=== PATIENT | male | born 1990 | race African-American/Black ===

== ENCOUNTER 2018-01-29 05:52 | Emergency (ER) | payer OTHER ==
[2018-01-29] MEDS ORDERED: IBUPROFEN 600 MG TABLET PO ONE (06:44)
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
[2018-01-29 09:10] VITALS: BP 122/79
== END 2018-01-29 09:26 | disposition home or self-care (01) ==
LOC: ER 05:52
DX: S06.0X9A Concussion with loss of consciousness of unspecified duration, initial encounter (principal); S63.91XA Sprain of unspecified part of right wrist and hand, initial encounter; S43.401A Unspecified sprain of right shoulder joint, initial encounter; S02.31XA Fracture of orbital floor, right side, initial encounter for closed fracture; H57.11 Ocular pain, right eye; V89.2XXA Person injured in unspecified motor-vehicle accident, traffic, initial encounter
CPT/HCPCS: 70450; 70486; 72125; 99284

== ENCOUNTER 2018-07-02 12:21 | Emergency (ER) | payer SELFPAY ==
[2018-07-02 12:29] VITALS: BP 123/78
--- NOTE | 2018-07-02 14:09 | ER Document Report ---
HPI - HPI Patient complains to provider of: Headache Time Seen by Provider: 07/02/18 13:57 Onset: Yesterday Quality of pain: No pain Pain Level: Denies Context: Patient presents emergency department with complaints of a headache he had yesterday. He reports he gets headaches that come and go. He had to leave work yesterday and they told him he needs a doctor's note to come back. Patient d enies headache at this time. Denies other symptoms such as fever vomiting diarrhea denies head trauma. Patient reports he usually gets headache at the back of his head. He thinks it may be from where he works with a lot of steam. Patient reports the headache usually goes away after he takes an ibuprofen. Past Medical History - General Information source: Patient - Social History Smoking Status: Unknown if Ever Smoked Occupation: [employer] Family History: None Patient has suicidal ideation: No Patient has homicidal ideation: No - Medical History Medical History: Negative Renal/ Medical History: Denies: Hx Peritoneal Dialysis Surgical Hx: Negative Vertical Provider Document - CONSTITUTIONAL Agree With Documented VS: Yes Exam Limitations: No Limitations General Appearance: WD/WN, No Apparent Distress - INFECTION CONTROL TRAVEL OUTSIDE OF THE [place] IN LAST 30 DAYS: No - HEENT HEENT: Atraumatic, Normal ENT Exam, Normocephalic, PERRLA. negative: Conjuctival Injection, Pharyngeal Erythema, Tympanic Membrane Red - NECK Neck: Normal Inspection, Supple. negative: Lymphadenopathy-Left, Lymphadenopathy-Right - RESPIRATORY Respiratory: Breath Sounds Normal, No Respiratory Distress - CARDIOVASCULAR Cardiovascular: Regular Rate, Regular Rhythm - GI/ABDOMEN Gastrointestinal: Abdomen Soft, Abdomen Non-Tender - MUSCULOSKELETAL/EXTREMETIES Musculoskeletal/Extremeties: ROSALIA AYALA - NEURO Level of Consciousness: Awake, Alert, Appropriate Motor/Sensory: No Motor Deficit - DERM Integumentary: Warm, Dry, No Rash Course - Re-evaluation Re-evalutation: 07/02/18 14:08 Patient denies symptoms at this time will be discharged home with a work note. - Vital Signs Vital signs: Temp Pulse Resp BP Pulse Ox 98.0 F 52 L 14 123/78 99 07/02/18 12:28 07/02/18 12:28 07/02/18 12:28 07/02/18 12:28 07/02/18 12:28 Discharge - Discharge Clinical Impression: Headache Qualifiers: Headache type: unspecified Headache chronicity pattern: unspecified pattern Intractability: not intractable Qualified Code(s): R51 - Headache Condition: Stable Disposition: HOME, SELF-CARE Instructions: Headache ([facility]), Acetaminophen Additional Instructions: *You have been evaluated for history of headache *Take Tylenol as indicated *Follow up with a primary care provider within 5 days for recheck *Return to ED for worsening condition, changes, needs *Return to ED if not better in 24 hours Forms: Return to Work
== END 2018-07-02 14:12 | disposition home or self-care (01) ==
LOC: ER 12:21
DX: R51 Headache (principal)
CPT/HCPCS: 99281

== ENCOUNTER 2018-09-08 11:20 | Emergency (ER) | payer SELFPAY ==
--- NOTE | 2018-09-08 12:32 | ER Document Report ---
HPI - HPI Patient complains to provider of: sore throat Time Seen by Provider: 09/08/18 12:26 Onset: Other - 3 days Onset/Duration: Persistent Quality of pain: Achy Pain Level: 3 Context: Patient presents complaining of cough and sore throat that started over the past 3 days. Patient denies any fever nausea or vomiting. Associated Symptoms: Nonproductive cough, Sore throat. denies: Fever, Rhinnorhea Exacerbated by: Denies Relieved by: Denies Similar symptoms previously: No Recently seen / treated by doctor: No - ROS ROS below otherwise negative: Yes Systems Reviewed and Negative: Yes All other systems reviewed and negative - CONSTITUTIONAL Constitutional: DENIES: Fever, Chills - EENT EENT: REPORTS: Sore Throat, Congestion - CARDIOVASCULAR Cardiovascular: DENIES: Chest pain - RESPIRATORY Respiratory: REPORTS: Coughing. DENIES: Trouble Breathing - GASTROINTESTINAL Gastrointestinal: DENIES: Abdominal Pain, Patient vomiting, Diarrhea - MUSCULOSKELETAL Musculoskeletal: DENIES: Back Pain - DERM Skin Color: Normal Skin Problems: None Past Medical History - General Information source: Patient - Social History Smoking Status: Current Every Day Smoker Smoking Education Provided: Yes Frequency of alcohol use: None Drug Abuse: None Occupation: [employer] Family History: None Patient has suicidal ideation: No Patient has homicidal ideation: No - Medical History Medical History: Negative Renal/ Medical History: Denies: Hx Peritoneal Dialysis Surgical Hx: Negative Vertical Provider Document - CONSTITUTIONAL Agree With Documented VS: Yes Exam Limitations: No Limitations General Appearance: WD/WN, No Apparent Distress - INFECTION CONTROL TRAVEL OUTSIDE OF THE [place] IN LAST 30 DAYS: No - HEENT HEENT: Atraumatic, Normocephalic, Pharyngeal Tenderness, Pharyngeal Erythema. negative: Pharyngeal Exudate, Tympanic Membrane Red, Tympanic Membrane Bulging - NECK Neck: Normal Inspection, Supple. negative: Lymphadenopathy-Left, Lymphadenopathy-Right - RESPIRATORY Respiratory: Breath Sounds Normal, No Respiratory Distress - CARDIOVASCULAR Cardiovascular: Regular Rate, Regular Rhythm, No Murmur - BACK Back: Normal Inspection - MUSCULOSKELETAL/EXTREMETIES Musculoskeletal/Extremeties: MAEW, FROM - NEURO Level of Consciousness: Awake, Alert, Appropriate Motor/Sensory: No Motor Deficit - DERM Integumentary: Warm, Dry, No Rash Course - Re-evaluation Re-evalutation: 09/08/18 13:00 Rapid strep test negative, throat culture is pending at this time. 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 Respirations even unlabored, no concern for pneumonia. Good return p recautions discussed with patient. Patient with only mild wheezing only noted with coughing, no wheezing noted with respirations. 09/08/18 13:02 - Vital Signs Vital signs: Temp Pulse Resp BP Pulse Ox 98.0 F 66 18 118/68 97 09/08/18 11:43 09/08/18 11:43 09/08/18 11:43 09/08/18 11:43 09/08/18 11:43 - Laboratory Laboratory results interpreted by me: 09/08/18 12:59 Labs- Entire Visit 09/08/18 12:15 Group A Strep Rapid NEGATIVE Discharge - Discharge Clinical Impression: Sore throat Upper respiratory infection Qualifiers: URI type: unspecified URI Qualified Code(s): J06.9 - Acute upper respiratory infection, unspecified Condition: Stable Disposition: HOME, SELF-CARE Instructions: Inhaled Bronchodilators ([facility]), Sore Throat ([facility]), Steroid Medication, Upper Respiratory Illness ([facility]) Additional Instructions: Return immediately for any new or worsening symptoms Followup with your primary care provider, call tomorrow to make a followup appointment Throat culture is pending, we will call if you need any different treatment Prescriptions: Albuterol Sulfate [Proair Hfa Inhalation Aerosol 8.5 gm Mdi] 2 puff IH Q4 PRN #1 mdi PRN Reason: Inhaler,Assist Device,Accesory [Optichamber] 1 each MC Q4 PRN #1 each PRN Reason: RX: Prednisone [Deltasone 10 mg Tablet] 10 mg PO ASDIR PRN #21 tablet PRN Reason: Forms: Smoking Cessation Education, Return to Work Referrals: [facility] [Provider Group] - Follow up as needed
[2018-09-08 13:14] VITALS: BP 125/75
== END 2018-09-08 13:20 | disposition home or self-care (01) ==
LOC: ER 11:20
DX: J02.9 Acute pharyngitis, unspecified (principal); J06.9 Acute upper respiratory infection, unspecified; R05 Cough; R06.2 Wheezing; F17.200 Nicotine dependence, unspecified, uncomplicated
CPT/HCPCS: 87070; 87880; 99283